=== PATIENT | female | born 1940 | race Caucasian/White ===

== ENCOUNTER 2018-07-30 16:01 | Emergency (ER) | payer MEDICARE, BC ==
--- NOTE | 2018-07-30 16:08 | UC ---
Respiratory Complaint HPI - HPI Summary HPI Summary: 77 yo female presents with fever, productive cough, and body aches for the last 2 days. Feels weak overall. Has taken ibuprofen for discomfort with mild relief. She does feel short of breath at times - worse with cough "fits". Denies sore throat, sinus symptoms, chest pain, abdominal pain, n/v. - History of Current Complaint Stated Complaint: CHEST CONGESTION Time Seen by Provider: 07/30/18 16:08 Hx Obtained From: Patient Onset/Duration: Gradual Onset Severity Initially: Mild Severity Currently: Mild Pain Intensity: 3 Pain Scale Used: 0-10 Numeric Character: Cough: Productive - Allergies/Home Medications Allergies/Adverse Reactions: Allergies Allergy/AdvReac Type Severity Reaction Status Date / Time Sulfa (Sulfonamide Allergy Intermediate Hives Verified 07/30/18 16:03 Antibiotics) PMH/Surg Hx/FS Hx/Imm Hx Endocrine History: Diabetes, Dyslipidemia Cardiovascular History: Hypertension, Pacemaker/ICD, Congestive Heart Failure GI/ History: Gastroesophageal Reflux - Surgical History Surgical History: Yes Surgery Procedure, Year, and Place: hysterectomy. oophrectomy. appendectomy. polypectomy. lung biopsy surgery scheduled for 04/12/16 - Family History Known Family History: Positive: Hypertension - Social History Lives: With Family Alcohol Use: None Substance Use Type: None Smoking Status (MU): Former Smoker Type: Cigarettes Amount Used/How Often: 10 years 2PPD Have You Smoked in the Last Year: No When Did the Patient Quit Smoking/Using Tobacco: 50 years Review of Systems All Other Systems Reviewed And Are Negative: Yes Constitutional: Positive: Fever, Fatigue, Other - Body aches Skin: Positive: Negative Eyes: Positive: Negative ENT: Positive: Negative Respiratory: Positive: Cough Cardiovascular: Positive: Negative Gastrointestinal: Positive: Negative Neurovascular: Positive: Negative Neurological: Positive: Negative Psychological: Positive: Negative Physical Exam - Summary Physical Exam Summary: GENERAL: NAD. WDWN. No pain distress. SKIN: No rashes, sores, lesions, or open wounds. HEENT: Head: AT/NC Eyes: Conjunctiva clear without inflammation or discharge. Ears: Hearing grossly normal. TMs intact, no bulging, erythema, or edema. Nose: Nasal mucosa pink and moist. NTTP maxillary and frontal sinus. Throat: Posterior oropharynx without exudates, erythema, or tonsillar enlargement. Uvula midline. NECK: Supple. Nontender. No lymphadenopathy. CHEST: Rales left lung with wheezing throughout right and left lung. No accessory muscle use. Breathing comfortably and in no distress. CV: Pulses intact. Cap refill <2seconds NEURO: Alert. PSYCH: Age appropriate behavior. Triage Information Reviewed: Yes Vital Signs: Vital Signs: Temp Pulse Resp BP Pulse Ox 99.4 F 80 20 132/68 97 07/30/18 16:06 07/30/18 16:06 07/30/18 16:06 07/30/18 16:06 07/30/18 16:06 Laboratory Tests 07/30/18 16:20 Influenza A (Rapid) Positive A Vital Signs Reviewed: Yes Respiratory Course/Dx - Course Course Of Treatment: POC glucose 203 compared to 138 this am per pt. IMPRESSION : Pacemaker leads in place. Lung schwab appear hyperinflated. No changes noted. since April 17, 2016. Duoneb: pt states that she feels "great" s/p duoneb. Lung sounds markedly improved with mild wheezing at bases only. Discussed with pt my concerns given her comorbidities and PMHx. She does not want to go to the hospital and adamantly does want to be admitted - therefore will treat her with tamiflu and cover for PNA with augmentin. I have scheduled her a f/u at her PCP' s office in 2 days for a recheck. Discussed with pt and pt's daughter that if her symptoms worsen she is to go to the ED. - Differential Dx/Diagnosis Provider Diagnosis: Influenza, DM2 (diabetes mellitus, type 2), CHF (congestive heart failure) Discharge - Sign-Out/Discharge Documenting (check all that apply): Patient Departure All imaging exams completed and their final reports reviewed: Yes - Discharge Plan Condition: Stable Disposition: HOME Prescriptions: Amoxicillin/Clavulanate TAB* [Augmentin TAB 875*] 875 mg PO BID #14 tab Oseltamivir CAP* [Tamiflu CAP*] 75 mg PO BID #10 cap Patient Education Materials: Influenza (DC) Referrals: William Gillis MD [Primary Care Provider] - 2 Days (Shahla Blanco 0900) Additional Instructions: If you develop a fever, shortness of breath, chest pain, new or worsening symptoms - please call your PCP or go to the ED. I have scheduled you an appointment with Shahla Blanco PA-C in Dr. Gillis's office for 08/01/18 at 9:00am for a recheck of your symptoms. Please rest and drink plenty of fluids. Follow up as above. - Billing Disposition and Condition Condition: STABLE Disposition: Home
[2018-07-30 16:11] VITALS: BP 132/68
[2018-07-30] MEDS ORDERED: Albuterol/Ipratropium NEB.SOL* Albuterol 2.5 MG/Ipratropium 0.5 MG 3 ML INH ONE (16:17)
== END 2018-07-30 17:10 | disposition home or self-care (01) ==
LOC: UCEAST 16:01
DX: E11.8 Type 2 diabetes mellitus with unspecified complications (principal); I50.9 Heart failure, unspecified; Z95.810 Presence of automatic (implantable) cardiac defibrillator; Z88.2 Allergy status to sulfonamides; Z87.891 Personal history of nicotine dependence
CPT/HCPCS: 71046; 99212; A9270-GY; G0463

== ENCOUNTER 2018-09-27 10:03 | Emergency (ER) | payer MEDICARE, BC ==
[2018-09-27 10:19] VITALS: BP 171/73
--- NOTE | 2018-09-27 10:32 | ED ---
Respiratory - HPI Summary HPI Summary: 77-year-old female presents with cough for the past 6 weeks. States she was diagnosed with the flu 6 weeks ago. States she finished her tamiflu and the cough has persisted. She has a history of asthma but she has not been taking her inhaler. She denies any recent weight change. No pain or swelling in her calf muscles. States that the cough is a productive cough mostly at night when she coughs up white phlegm. she has been following her primary. She denies any chest pain or shortness breath. No sore throat. No fevers. Has history of lung cancer that is in remission his primary problem has been removed she is also diabetic. she denies any hx of CHF. she is currently taking cough medication. she is no xarelto as has a pacemaker. - History of Current Complaint Chief Complaint: UCRespiratory Stated Complaint: COUGH Time Seen by Provider: 09/27/18 10:26 Pain Intensity: 0 - Allergy/Home Medications Allergies/Adverse Reactions: Allergies Allergy/AdvReac Type Severity Reaction Status Date / Time Sulfa (Sulfonamide Allergy Intermediate Hives Verified 09/27/18 10:19 Antibiotics) Home Medications: Home Medications Dronedarone TAB* [Multaq TAB*] 400 mg PO DAILY 09/27/18 [History Confirmed 09/27] PMH/Surg Hx/FS Hx/Imm Hx Endocrine/Hematology History: Reports: Hx Diabetes - type 2 Denies: Hx Thyroid Disease Cardiovascular History: Reports: Hx Hypertension - on meds, Hx Pacemaker/ICD - 2018, Other Cardiovascular Problems/Disorders - LUNG CANCER- LEFT BOTTOM LOBE REMOVED Denies: Hx Congestive Heart Failure Respiratory History: Reports: Hx Asthma - no meds Denies: Hx Chronic Obstructive Pulmonary Disease (COPD) GI History: Denies: Hx Ulcer History: Denies: Hx Renal Disease - Cancer History Cancer Type, Location and Year: Cervical Cancer 34 years old. [place] lung lower lobe removed 2017?? - Surgical History Surgery Procedure, Year, and Place: hysterectomy. oophrectomy. appendectomy. polypectomy. lung biopsy surgery scheduled for 04/12/16 Infectious Disease History: No Infectious Disease History: Denies: Hx Hepatitis, Hx Human Immunodeficiency Virus (HIV), History Other Infectious Disease, Traveled Outside the [place] in Last 30 Days - Family History Known Family History: Positive: Hypertension - Social History Alcohol Use: None Hx Substance Use: No Substance Use Type: Reports: None Hx Tobacco Use: No Smoking Status (MU): Former Smoker Type: Cigarettes Amount Used/How Often: 10 years 2PPD Have You Smoked in the Last Year: No Review of Systems Negative: Fever Negative: Chest Pain Positive: Cough. Negative: Shortness Of Breath Negative: Abdominal Pain All Other Systems Reviewed And Are Negative: Yes Physical Exam Triage Information Reviewed: Yes Vital Signs On Initial Exam: Initial Vitals Temp Pulse Resp BP Pulse Ox 98 F 79 17 171/73 100 09/27/18 10:16 09/27/18 10:16 09/27/18 10:16 09/27/18 10:16 09/27/18 10:16 Vital Signs Reviewed: Yes Appearance: Positive: Well-Appearing Skin: Positive: Warm, Dry Head/Face: Positive: Normal Head/Face Inspection Eyes: Positive: Normal, EOMI, [place], Conjunctiva Clear ENT: Positive: Normal ENT inspection, Pharynx normal, TMs normal Respiratory/Lung Sounds: Positive: Clear to Auscultation, Breath Sounds Present Cardiovascular: Positive: Normal, RRR Abdomen Description: Positive: Nontender, Soft Bowel Sounds: Positive: Present Musculoskeletal: Positive: Normal Neurological: Positive: Normal Psychiatric: Positive: Normal Diagnostics - Vital Signs Vital Signs Temp Pulse Resp BP Pulse Ox 09/27/18 10:16 98 F 79 17 171/73 100 - Laboratory Lab Statement: Any lab studies that have been ordered have been reviewed, and results considered in the medical decision making process. - Radiology chest Radiology Interpretation Completed By: Radiologist Summary of Radiographic Findings: IMPRESSION: Pacemaker leads in place. No active cardiopulmonary disease is identified. Disposition - Course Course Of Treatment: 77-year-old female presents with cough for the past 6 weeks. States she was diagnosed with the flu 6 weeks ago. States she finished her tamiflu and the cough has persisted. She has a history of asthma but she has not been taking her inhaler. She denies any recent weight change. No pain or swelling in her calf muscles. States that the cough is a productive cough mostly at night when she coughs up white phlegm. she has been following her primary. She denies any chest pain or shortness breath. No sore throat. No fevers. Has history of lung cancer that is in remission his primary problem has been removed she is also diabetic. she denies any hx of CHF. she is currently taking cough medication. on exam lungs CTA. no swelling noted to legs. chest xray normal. encourage to take inhaler. will add on augmentin with hx of asthma likely has a copd component to it. will give tessalon for cough and told to stop otc cough medications as blood pressure is elevated at this visit. told follow up with primary within 5 days about cough and blood pressure. patient understand and agrees with plan. - Differential Dx - Cardiopulmonary Differential Diagnoses - Cardiopulmonary: Bronchitis, CHF, Lower Resp Infection - Diagnoses Provider Diagnoses: Bronchitis, Hypertension Discharge - Sign-Out/Discharge Documenting (check all that apply): Patient Departure All imaging exams completed and their final reports reviewed: Yes - Discharge Plan Condition: Good Disposition: HOME Prescriptions: Amoxicillin/Clavulanate TAB* [Augmentin TAB 500 mg*] 500 mg PO BID #14 tab Benzonatate CAP* [Tessalon 100 MG CAP*] 100 mg PO TID #21 cap Levalbuterol HFA INHALER* [Xopenex Hfa Inhaler*] 1 puff INH Q6H PRN #1 mdi PRN Reason: Cough Patient Education Materials: Acute Bronchitis (ED) Referrals: William Gillis MD [Primary Care Provider] - Additional Instructions: Follow up with primary within 5 days take tessalon three times a day for cough use inhaler every 6 hours as needed for cough Take augmentin twice a day for 7 days Return to ED if develop any new or worsening symptoms - Billing Disposition and Condition Condition: GOOD Disposition: Home
== END 2018-09-27 11:15 | disposition home or self-care (01) ==
LOC: UCEAST 10:03
DX: J40 Bronchitis, not specified as acute or chronic (principal); I10 Essential (primary) hypertension; Z87.891 Personal history of nicotine dependence; Z88.2 Allergy status to sulfonamides
CPT/HCPCS: 71046; 99212; G0463

== ENCOUNTER 2018-11-01 11:10 | Emergency (ER) | payer MEDICARE, BC ==
[2018-11-01 11:59] VITALS: BP 136/63
--- NOTE | 2018-11-01 12:29 | ED ---
Bite Injury/Animal - HPI Summary HPI Summary: 77 year old female presents with potential tick behind right ear. She states that her daughter removed most of the tick yesterday and it was engorged. It was removed yesterday. Unsure how long the tick was there. She has no medical conditions. - History of Current Complaint Chief Complaint: Martha Stated Complaint: TICK BITE Time Seen by Provider: 11/01/18 12:16 Pain Intensity: 0 - Allergies/Home Medications Allergies/Adverse Reactions: Allergies Allergy/AdvReac Type Severity Reaction Status Date / Time Sulfa (Sulfonamide Allergy Intermediate Hives Verified 11/01/18 11:59 Antibiotics) PMH/Surg Hx/FS Hx/Imm Hx Endocrine/Hematology History: Reports: Hx Diabetes - type 2 Denies: Hx Thyroid Disease Cardiovascular History: Reports: Hx Hypertension - on meds, Hx Pacemaker/ICD - 2017, Other Cardiovascular Problems/Disorders - LUNG CANCER- LEFT BOTTOM LOBE REMOVED Denies: Hx Congestive Heart Failure Respiratory History: Reports: Hx Asthma - no meds Denies: Hx Chronic Obstructive Pulmonary Disease (COPD) GI History: Denies: Hx Ulcer History: Denies: Hx Renal Disease - Cancer History Cancer Type, Location and Year: Cervical Cancer 34 years old. [place] lung lower lobe removed 2017?? - Surgical History Surgery Procedure, Year, and Place: hysterectomy. oophrectomy. appendectomy. polypectomy. lung biopsy surgery scheduled for 04/12/16 Infectious Disease History: No Infectious Disease History: Denies: Hx Hepatitis, Hx Human Immunodeficiency Virus (HIV), History Other Infectious Disease, Traveled Outside the [place] in Last 30 Days - Family History Known Family History: Positive: Hypertension - Social History Alcohol Use: None Hx Substance Use: No Substance Use Type: Reports: None Hx Tobacco Use: No Smoking Status (MU): Former Smoker Type: Cigarettes Amount Used/How Often: 10 years 2PPD Have You Smoked in the Last Year: No Review of Systems Negative: Fever Negative: Chest Pain Negative: Shortness Of Breath Positive: Rash All Other Systems Reviewed And Are Negative: Yes Physical Exam Triage Information Reviewed: Yes Vital Signs On Initial Exam: Initial Vitals Temp Pulse Resp BP Pulse Ox 98 F 94 17 136/63 99 11/01/18 11:57 11/01/18 11:57 11/01/18 11:57 11/01/18 11:57 11/01/18 11:57 Vital Signs Reviewed: Yes Appearance: Positive: Well-Appearing Skin: Positive: Warm, Dry, Other - scabbed area behind right ear Head/Face: Positive: Normal Head/Face Inspection Eyes: Positive: Normal, Conjunctiva Clear ENT: Positive: Pharynx normal Respiratory/Lung Sounds: Positive: Clear to Auscultation, Breath Sounds Present Cardiovascular: Positive: Normal, RRR Musculoskeletal: Positive: Normal Neurological: Positive: Normal Psychiatric: Positive: Normal Diagnostics - Vital Signs Vital Signs Temp Pulse Resp BP Pulse Ox 11/01/18 11:57 98 F 94 17 136/63 99 - Laboratory Lab Statement: Any lab studies that have been ordered have been reviewed, and results considered in the medical decision making process. Bite Injury Course/Dx - Course Course Of Treatment: 77 year old female presents with potential tick behind right ear. She states that her daughter removed most of the tick yesterday and it was engorged. It was removed yesterday. Unsure how long the tick was there. She has no medical conditions. On exam right ear has scab behind it. patient wanted it removed so removed with scalpel. appears most consistent with a tick. We will treat with a prophylactic dose doxycycline. Told to keep the area clean and wash with soap and water. will have follow up with primary as blood pressure is in pre-htn range. Patient understands agrees with plan. - Diagnoses Differential Diagnosis/HQI/PQRI: Positive: Cellulitis - tick, lyme, Other Provider Diagnosis: Tick bite Discharge - Sign-Out/Discharge Documenting (check all that apply): Patient Departure All imaging exams completed and their final reports reviewed: No Studies - Discharge Plan Condition: Good Disposition: HOME Prescriptions: DOXYcycline CAP(*) [DOXYcycline 100MG CAP(*)] 200 mg PO DAILY #2 cap Patient Education Materials: Tick Bite (ED) Referrals: William Gillis MD [Primary Care Provider] - Additional Instructions: take doxycycline both tablets at once Return to if develop rash or fever or any new or worsening symptoms - Billing Disposition and Condition Condition: GOOD Disposition: Home
== END 2018-11-01 12:33 | disposition home or self-care (01) ==
LOC: UCEAST 11:10
DX: S00.461A Insect bite (nonvenomous) of right ear, initial encounter (principal); W57.XXXA Bitten or stung by nonvenomous insect and other nonvenomous arthropods, initial encounter; Y92.9 Unspecified place or not applicable; E11.9 Type 2 diabetes mellitus without complications; I10 Essential (primary) hypertension; Z95.810 Presence of automatic (implantable) cardiac defibrillator; J45.909 Unspecified asthma, uncomplicated; Z88.2 Allergy status to sulfonamides; Z87.891 Personal history of nicotine dependence
CPT/HCPCS: 99212; G0463

== ENCOUNTER 2020-11-09 16:44 | Inpatient (IN) ==
[2020-11-09] MEDS ORDERED: NS 0.9% 1000 ml BAG 1,000 ML IV ONE ×2 (16:48→17:39)
[2020-11-09] MEDS ORDERED: Piperacillin/Tazobac ADVAN 3.375 GM in NS 0.9% 100 ml BAG 100 ML IVPB ONE (17:25)
[2020-11-09 17:46] LABS: Hematocrit 43 % (35-47); Hemoglobin 14.2 g/dL (12.0-16.0); Mean Corpuscular HGB Conc 33 g/dL (31-36); Mean Corpuscular Hemoglobin 27 pg (27-31); Mean Corpuscular Volume 83 fL (80-97); Mean Platelet Volume 7.8 fL (7.4-10.4); Platelet Count 187 10^3/uL (150-450); Red Blood Count 5.21 10^6 /uL (3.70-4.87); Red Cell Distribution Width 15 % (10-15); White Blood Count 13.2 10^3/uL (3.5-10.8)
[2020-11-09 17:49] LABS: Urine Appearance Cloudy; Urine Bilirubin Negative (Negative); Urine Blood 1+ (Negative); Urine Color Yellow; Urine Glucose 3+(>=500 mg/dL) (Negative); Urine Ketones 2+ (Negative); Urine Nitrite Negative (Negative); Urine Protein 2+(100 mg/dL) (Negative); Urine Specific Gravity 1.024 (1.002-1.030); Urine Urobilinogen Negative (Negative)
[2020-11-09 17:52] LABS: Urine Bacteria Absent (Absent); Urine Red Blood Cell 1+(3-5/hpf) (Absent); Urine Squamous Epithelial Cell Present (Absent); Urine White Blood Cell Trace(0-5/hpf) (Absent)
[2020-11-09 17:52] LABS: INR 1.26 (0.82-1.09)
[2020-11-09 18:09] LABS: Troponin I 0.12 ng/mL (<0.03)
[2020-11-09 18:19] LABS: ALT 16 U/L (7-52); AST 24 U/L (13-39); Albumin 3.8 g/dL (3.2-5.2); Alkaline Phosphatase 91 U/L (34-104); Anion Gap 21 mmol/L (2-11); Blood Urea Nitrogen 34 mg/dL (6-24); CO2 Carbon Dioxide 19 mmol/L (22-32); Calcium 9.4 mg/dL (8.6-10.3); Chloride 98 mmol/L (101-111); EGFR African American 28.9 (>60); EGFR Non-African American 23.9 (>60); Globulin 3.9 g/dL (2-4); Glucose 241 mg/dL (70-100); Lipase < 10 U/L (11.0-82.0); Magnesium 2.2 mg/dL (1.9-2.7); Sodium 138 mmol/L (135-145); Total Protein 7.7 g/dL (6.4-8.9)
[2020-11-09 18:22] LABS: Salicylate < 2.50 mg/dL (<30)
[2020-11-09 18:54] LABS: ABS Lymphocytes 0.3 10^3/ul (1.0-4.8); ABS Monocytes 0.4 10^3/ul (0-0.8); ABS Neutrophils 12.4 10^3/ul (1.5-7.7); Lymphocyte % 2.1 %; Nucleated Red Blood Cells % 0.2
[2020-11-09] MEDS ORDERED: Vancomycin 1,000 MG in NS 0.9% 250 ml 250 ML IVPB ONE (18:58)
[2020-11-09] MEDS ORDERED: Vancomycin 1,000 MG BAG/ADDV ONE (19:38)
[2020-11-10] MEDS ORDERED: diPHENhydraMINE IV 50 MG/ML 1 ml VIAL (BENADRYL) IV ONE
[2020-11-10] MEDS ORDERED: methylPREDNISolone SOD 40 mg/ml 1 ml VIAL IV ONE (00:01)
[2020-11-10] MEDS ORDERED: Lactated Ringers 1000 ml BAG 1,000 ML IV ONE ×4 (00:54→04:50)
[2020-11-10] MEDS ORDERED: Vancomycin per Pharmacy 1 EA NOTE FOLLOW UP SCH (01:00)
[2020-11-10] MEDS ORDERED: Zosyn per Pharmacy NOTE FOLLOW UP SCH (01:00)
[2020-11-10] MEDS ORDERED: ZOSYN 3.375 GM x ONE DOSE over 30 miuntes IV SCH (01:30)
[2020-11-10] MEDS ORDERED: ZOSYN 3.375 GM x ONE DOSE over 30 miuntes IV (01:30)
[2020-11-10 03:35] LABS: Troponin I 0.18 ng/mL (<0.03)
[2020-11-10] MEDS ORDERED: NS 0.9% 500 ml BAG 500 ML IV ONE (05:52)
[2020-11-10] MEDS ORDERED: Norepinephrine 16MCG/ML IVPRE 4,000 MCG/250 ML BAG IV SCH (07:00)
[2020-11-10 07:13] LABS: Troponin I 0.22 ng/mL (<0.03)
[2020-11-10 10:02] LABS: Hematocrit 40 % (35-47); Hemoglobin 12.5 g/dL (12.0-16.0); Mean Corpuscular HGB Conc 31 g/dL (31-36); Mean Corpuscular Hemoglobin 26 pg (27-31); Mean Corpuscular Volume 85 fL (80-97); Mean Platelet Volume 7.8 fL (7.4-10.4); Platelet Count 161 10^3/uL (150-450); Red Blood Count 4.72 10^6 /uL (3.70-4.87); Red Cell Distribution Width 15 % (10-15); White Blood Count 15.3 10^3/uL (3.5-10.8)
[2020-11-10 10:19] LABS: C Reactive Protein 445.96 mg/L (<8.01); EGFR African American 29.1 (>60); EGFR Non-African American 24.1 (>60); Potassium 4.3 mmol/L (3.5-5.0)
[2020-11-10 10:48] LABS: ABS Lymphocytes 0.3 10^3/ul (1.0-4.8); ABS Monocytes 0.6 10^3/ul (0-0.8); ABS Neutrophils 14.4 10^3/ul (1.5-7.7); Eosinophil % 0.2 %; Lymphocyte % 1.8 %; Nucleated Red Blood Cells % 0.1
[2020-11-10] MEDS: Norepinephrine 16MCG/ML IVPRE 4,000 MCG/250 ML BAG IV SCH (14:08)
[2020-11-10] MEDS ORDERED: Dextrose 50% Syringe 50 ml 25 GM/50 ML SYRINGE IV PUSH PRN (14:33)
[2020-11-10] MEDS ORDERED: Lactated Ringers 1000 ml BAG 1,000 ML IV SCH (15:00)
[2020-11-10] MEDS: Cefepime 1 GM in Dextrose 1 GM/50 ML BAG IV SCH (15:02)
[2020-11-10 15:23] LABS: Troponin I 0.17 ng/mL (<0.03)
[2020-11-10] MEDS: Vancomycin 750 MG in NS 0.9% 250 ML IVPB SCH (16:02)
[2020-11-11] MEDS: Cefepime 1 GM in Dextrose 1 GM/50 ML BAG IV SCH ×2 (02:45→15:21)
[2020-11-11 04:12] LABS: Hematocrit 39 % (35-47); Hemoglobin 12.6 g/dL (12.0-16.0); Mean Corpuscular HGB Conc 33 g/dL (31-36); Mean Corpuscular Hemoglobin 27 pg (27-31); Mean Corpuscular Volume 82 fL (80-97); Mean Platelet Volume 7.8 fL (7.4-10.4); Platelet Count 140 10^3/uL (150-450); Red Cell Distribution Width 15 % (10-15); White Blood Count 17.1 10^3/uL (3.5-10.8)
[2020-11-11 04:27] LABS: Calcium 7.9 mg/dL (8.6-10.3); EGFR African American 41.6 (>60); EGFR Non-African American 34.4 (>60); Potassium 4.1 mmol/L (3.5-5.0)
[2020-11-11] MEDS: Norepinephrine 16MCG/ML IVPRE 4,000 MCG/250 ML BAG IV SCH (04:32)
[2020-11-11 04:50] LABS: ABS Eosinophils 0.3 10^3/ul (0-0.6); ABS Lymphocytes 0.4 10^3/ul (1.0-4.8); ABS Monocytes 0.7 10^3/ul (0-0.8); ABS Neutrophils 15.6 10^3/ul (1.5-7.7); Eosinophil % 1.8 %; Lymphocyte % 2.4 %; Nucleated Red Blood Cells % 0.3
[2020-11-11] MEDS: Vancomycin 750 MG in NS 0.9% 250 ML IVPB SCH (15:49)
[2020-11-12] MEDS: Cefepime 1 GM in Dextrose 1 GM/50 ML BAG IV SCH ×2 (02:58→14:30)
[2020-11-12 03:16] LABS: Hematocrit 35 % (35-47); Hemoglobin 11.4 g/dL (12.0-16.0); Mean Corpuscular HGB Conc 33 g/dL (31-36); Mean Corpuscular Hemoglobin 27 pg (27-31); Mean Corpuscular Volume 81 fL (80-97); Red Blood Count 4.29 10^6 /uL (3.70-4.87); Red Cell Distribution Width 15 % (10-15); White Blood Count 13.6 10^3/uL (3.5-10.8)
[2020-11-12 03:19] LABS: ABS Eosinophils 0.1 10^3/ul (0-0.6); ABS Lymphocytes 0.7 10^3/ul (1.0-4.8); ABS Monocytes 0.6 10^3/ul (0-0.8); Lymphocyte % 5.3 %; Mean Platelet Volume 8.2 fL (7.4-10.4)
[2020-11-12 03:27] LABS: Calcium 8.3 mg/dL (8.6-10.3); Potassium 4.1 mmol/L (3.5-5.0)
[2020-11-12 03:33] LABS: EGFR African American 62.9 (>60)
[2020-11-12 03:54] LABS: Platelet Count 78 10^3/uL (150-450)
[2020-11-12] MEDS ORDERED: Vancomycin Trough Check NOTE FOLLOW UP ONE (15:00)
[2020-11-12] MEDS: Linezolid 600 MG IVPREMIX(*) 600 MG/300 ML BAG IVPB SCH (17:37)
[2020-11-13] MEDS ORDERED: Diltiazem IV push/loading dose 5 MG/ML 5 ML vial (25 mg) IV SLOW PU ONE ×4 (01:42→12:58)
[2020-11-13] MEDS: Linezolid 600 MG IVPREMIX(*) 600 MG/300 ML BAG IVPB SCH ×2 (05:16→16:55)
[2020-11-13] MEDS ORDERED: Diltiazem IV push/loading dose 5 MG/ML 5 ML vial (25 mg) ONE (12:21)
[2020-11-14] MEDS: Albuterol HFA INHALER 8 gm MDI INH PRN (01:32)
[2020-11-14] MEDS: cefTRIAXone 1 gm/50 mL NS BAG 1 GM/50 ML BAG IVPB SCH (05:38)
[2020-11-14 06:13] LABS: C Reactive Protein 92.83 mg/L (<8.01); Calcium 9.7 mg/dL (8.6-10.3); EGFR African American 83.3 (>60); EGFR Non-African American 68.8 (>60); Potassium 4.2 mmol/L (3.5-5.0)
[2020-11-14 08:31] LABS: Hematocrit 41 % (35-47); Hemoglobin 13.1 g/dL (12.0-16.0); Mean Corpuscular HGB Conc 32 g/dL (31-36); Mean Corpuscular Hemoglobin 26 pg (27-31); Mean Corpuscular Volume 82 fL (80-97); Platelet Count 91 10^3/uL (150-450); Red Cell Distribution Width 15 % (10-15); White Blood Count 11.2 10^3/uL (3.5-10.8)
[2020-11-14 09:59] LABS: ABS Basophils 0.1 10^3/ul (0-0.2); ABS Eosinophils 0.3 10^3/ul (0-0.6); ABS Lymphocytes 1.4 10^3/ul (1.0-4.8); ABS Monocytes 0.8 10^3/ul (0-0.8); ABS Neutrophils 8.7 10^3/ul (1.5-7.7); Eosinophil % 2.4 %; Lymphocyte % 12.3 %; Nucleated Red Blood Cells % 0.3
[2020-11-15] MEDS: cefTRIAXone 1 gm/50 mL NS BAG 1 GM/50 ML BAG IVPB SCH (05:59)
[2020-11-15 06:22] LABS: Hematocrit 41 % (35-47); Hemoglobin 13.9 g/dL (12.0-16.0); Mean Corpuscular HGB Conc 34 g/dL (31-36); Mean Corpuscular Hemoglobin 28 pg (27-31); Mean Corpuscular Volume 83 fL (80-97); Mean Platelet Volume 9.5 fL (7.4-10.4); Platelet Count 144 10^3/uL (150-450); Red Blood Count 5.01 10^6 /uL (3.70-4.87); Red Cell Distribution Width 15 % (10-15); White Blood Count 9.4 10^3/uL (3.5-10.8)
[2020-11-15 06:39] LABS: Calcium 9.3 mg/dL (8.6-10.3); EGFR African American 76.6 (>60); EGFR Non-African American 63.3 (>60); Potassium 4.4 mmol/L (3.5-5.0)
[2020-11-15 07:51] LABS: ABS Basophils 0.1 10^3/ul (0-0.2); ABS Eosinophils 0.3 10^3/ul (0-0.6); ABS Lymphocytes 2.8 10^3/ul (1.0-4.8); ABS Monocytes 0.8 10^3/ul (0-0.8); ABS Neutrophils 5.5 10^3/ul (1.5-7.7); Eosinophil % 2.8 %; Lymphocyte % 29.5 %; Nucleated Red Blood Cells % 0.2
[2020-11-15] MEDS: Albuterol HFA INHALER 8 gm MDI INH PRN (08:43)
[2020-11-15] MEDS ORDERED: Buffered Lidocaine 1% SYRIN 1 ml INTRADERM ONE (10:33)
[2020-11-16 05:28] LABS: Hematocrit 38 % (35-47); Hemoglobin 12.7 g/dL (12.0-16.0); Mean Corpuscular HGB Conc 33 g/dL (31-36); Mean Corpuscular Hemoglobin 27 pg (27-31); Mean Corpuscular Volume 81 fL (80-97); Mean Platelet Volume 8.7 fL (7.4-10.4); Platelet Count 173 10^3/uL (150-450); Red Blood Count 4.72 10^6 /uL (3.70-4.87); Red Cell Distribution Width 15 % (10-15); White Blood Count 10.9 10^3/uL (3.5-10.8)
[2020-11-16] MEDS: ceFAZolin 2 GM PREMIX 2 GM/50 ML BAG IVPB SCH ×3 (05:38→21:23)
[2020-11-16 05:41] LABS: C Reactive Protein 36.5 mg/L (<8.01); Calcium 8.8 mg/dL (8.6-10.3); EGFR African American 87.1 (>60); EGFR Non-African American 71.9 (>60); Potassium 3.9 mmol/L (3.5-5.0)
[2020-11-16 05:49] LABS: ABS Basophils 0.1 10^3/ul (0-0.2); ABS Eosinophils 0.3 10^3/ul (0-0.6); ABS Lymphocytes 2.6 10^3/ul (1.0-4.8); ABS Monocytes 0.8 10^3/ul (0-0.8); Eosinophil % 2.6 %; Lymphocyte % 24.2 %; Nucleated Red Blood Cells % 0.1
[2020-11-17] MEDS: ceFAZolin 2 GM PREMIX 2 GM/50 ML BAG IVPB SCH ×2 (05:19→14:00)
[2020-11-17 07:04] LABS: INR 1.43 (0.82-1.09)
[2020-11-17 07:07] LABS: Hematocrit 41 % (35-47); Hemoglobin 13.3 g/dL (12.0-16.0); Mean Corpuscular HGB Conc 33 g/dL (31-36); Mean Corpuscular Hemoglobin 27 pg (27-31); Mean Corpuscular Volume 81 fL (80-97); Mean Platelet Volume 8.5 fL (7.4-10.4); Platelet Count 235 10^3/uL (150-450); Red Blood Count 5.01 10^6 /uL (3.70-4.87); Red Cell Distribution Width 15 % (10-15); White Blood Count 11.5 10^3/uL (3.5-10.8)
[2020-11-17 07:11] LABS: ABS Basophils 0.1 10^3/ul (0-0.2); ABS Eosinophils 0.1 10^3/ul (0-0.6); ABS Monocytes 0.8 10^3/ul (0-0.8); ABS Neutrophils 7.5 10^3/ul (1.5-7.7); Eosinophil % 1.1 %; Lymphocyte % 26.1 %; Nucleated Red Blood Cells % 0.1
[2020-11-17 07:15] LABS: Calcium 8.6 mg/dL (8.6-10.3); Potassium 3.6 mmol/L (3.5-5.0)
[2020-11-17 07:21] LABS: EGFR African American 88.4 (>60)
[2020-11-17 15:34] VITALS: BP 133/55
== END 2020-11-17 19:35 | disposition home or self-care (01) | DRG 871 ==
LOC: ED 16:44 → MEDTELE 11-10 00:11 → ICU 11-10 07:10 → MEDTELE 11-12 23:12
PROVIDERS: ADMIT Pediatrics; ATTEND Internal Medicine

== ENCOUNTER 2022-02-20 17:29 | Observation (INO) ==
[2022-02-20 19:29] LABS: ABS Eosinophils 0.3 10^3/ul (0-0.6); ABS Lymphocytes 1.2 10^3/ul (1.0-4.8); ABS Monocytes 0.8 10^3/ul (0-0.8); ABS Neutrophils 6.9 10^3/ul (1.5-7.7); Hematocrit 40 % (35-47); Hemoglobin 13.1 g/dL (12.0-16.0); Lymphocyte % 13.5 %; Mean Corpuscular HGB Conc 33 g/dL (31-36); Mean Corpuscular Hemoglobin 26 pg (27-31); Mean Corpuscular Volume 80 fL (80-97); Mean Platelet Volume 8.2 fL (7.4-10.4); Platelet Count 179 10^3/uL (150-450); Red Blood Count 5.05 10^6 /uL (3.70-4.87); Red Cell Distribution Width 15 % (10-15); White Blood Count 9.3 10^3/uL (3.5-10.8)
[2022-02-20 20:11] LABS: Albumin/Globulin Ratio 0.9 (1-3); Calcium 9.3 mg/dL (8.6-10.3); Globulin 3.2 g/dL (2-4); Potassium 4.7 mmol/L (3.5-5.0); Total Bilirubin 0.6 mg/dL (0.2-1.0); Total Protein 6.2 g/dL (6.4-8.9); eGFR CKD-EPI 48.8 (>60)
[2022-02-20] MEDS ORDERED: Dextrose 50% Syringe 50 ml 25 GM/50 ML SYRINGE IV PUSH PRN (20:27)
[2022-02-20 21:38] LABS: High Sensitivity Troponin 1 Hr 25 pg/mL (<15)
[2022-02-21] MEDS ORDERED: Albuterol HFA INHALER 8 gm MDI INH PRN (02:42)
[2022-02-21] MEDS ORDERED: Dextrose 50% Syringe 50 ml 25 GM/50 ML SYRINGE IV PUSH PRN (02:47)
[2022-02-21] MEDS: Empagliflozin 25 MG TAB PO SCH (08:25)
[2022-02-21] MEDS: Potassium Chlor 10 meq TAB PO SCH (08:27)
[2022-02-21] MEDS ORDERED: Mometasone/Formoter 200/5 MDI INH PRN (17:10)
[2022-02-21 18:34] LABS: Glucose Confirmatory 429 mg/dL (70-100)
[2022-02-22] MEDS: Potassium Chlor 10 meq TAB PO SCH (09:11)
[2022-02-22] MEDS: Empagliflozin 25 MG TAB PO SCH (09:11)
[2022-02-22 12:54] LABS: ABS Eosinophils 0.3 10^3/ul (0-0.6); ABS Lymphocytes 1.3 10^3/ul (1.0-4.8); ABS Monocytes 1.1 10^3/ul (0-0.8); ABS Neutrophils 7.9 10^3/ul (1.5-7.7); Eosinophil % 2.7 %; Hematocrit 39 % (35-47); Hemoglobin 12.7 g/dL (12.0-16.0); Lymphocyte % 12.3 %; Mean Corpuscular HGB Conc 32 g/dL (31-36); Mean Corpuscular Hemoglobin 26 pg (27-31); Mean Corpuscular Volume 80 fL (80-97); Mean Platelet Volume 8.5 fL (7.4-10.4); Platelet Count 156 10^3/uL (150-450); Red Blood Count 4.93 10^6 /uL (3.70-4.87); Red Cell Distribution Width 15 % (10-15); White Blood Count 10.7 10^3/uL (3.5-10.8)
[2022-02-22 13:48] LABS: Calcium 9.1 mg/dL (8.6-10.3); Potassium 4.5 mmol/L (3.5-5.0); eGFR CKD-EPI 58.7 (>60)
[2022-02-23 08:56] LABS: Calcium 9.3 mg/dL (8.6-10.3); Potassium 4.7 mmol/L (3.5-5.0); eGFR CKD-EPI 63.4 (>60)
[2022-02-23] MEDS: Potassium Chlor 10 meq TAB PO SCH (10:09)
[2022-02-23] MEDS: Empagliflozin 25 MG TAB PO SCH (10:10)
[2022-02-24] MEDS: Potassium Chlor 10 meq TAB PO SCH (08:21)
[2022-02-24] MEDS: Empagliflozin 25 MG TAB PO SCH (08:22)
[2022-02-24 10:49] VITALS: BP 104/47
== END 2022-02-24 13:30 | disposition swing bed (61) ==
LOC: EDHOLD 17:29 → ED 17:29 → EDHOLD 23:17 → SUATTDRO 02-21 02:30 → MED 02-21 16:34
PROVIDERS: ADMIT Internal Medicine; ATTEND Internal Medicine

== ENCOUNTER 2022-02-24 13:37 | Inpatient (IN) ==
[2022-02-24] MEDS ORDERED: Dextrose 50% Syringe 50 ml 25 GM/50 ML SYRINGE IV PUSH PRN (16:33)
[2022-02-24] MEDS ORDERED: Albuterol HFA INHALER 8 gm MDI INH PRN (16:33)
[2022-02-24] MEDS ORDERED: Mometasone/Formoter 200/5 MDI INH PRN (16:33)
[2022-02-25] MEDS: Potassium Chlor 10 meq TAB PO SCH (08:22)
[2022-02-25] MEDS: Empagliflozin 25 MG TAB PO SCH (08:25)
[2022-02-26] MEDS: Empagliflozin 25 MG TAB PO SCH (09:22)
[2022-02-26] MEDS: Potassium Chlor 10 meq TAB PO SCH (09:22)
[2022-02-27 09:43] VITALS: BP 133/66
[2022-02-27] MEDS: Empagliflozin 25 MG TAB PO SCH (09:46)
[2022-02-27] MEDS: Potassium Chlor 10 meq TAB PO SCH (09:46)
[2022-02-27 11:19] LABS: Rapid COVID-19 Molecular Undetected (Undetected)
== END 2022-02-27 12:10 | DRG 639 ==
LOC: SUATTDRO 13:37 → MED 13:37
PROVIDERS: ADMIT Internal Medicine; ATTEND Pediatrics

== ENCOUNTER 2022-03-12 12:58 | Inpatient (IN) ==
[2022-03-12] MEDS ORDERED: cefTRIAXone 1 gm/50 mL D5W 1 GM/50 ML BAG IV ONE (13:05)
[2022-03-12 13:18] LABS: ABS Basophils 0.1 10^3/ul (0-0.2); ABS Lymphocytes 2.2 10^3/ul (1.0-4.8); ABS Monocytes 0.6 10^3/ul (0-0.8); ABS Neutrophils 17.6 10^3/ul (1.5-7.7); Eosinophil % 0.2 %; Hematocrit 46 % (35-47); Hemoglobin 14.6 g/dL (12.0-16.0); Lymphocyte % 10.5 %; Mean Corpuscular HGB Conc 32 g/dL (31-36); Mean Corpuscular Hemoglobin 25 pg (27-31); Mean Corpuscular Volume 78 fL (80-97); Mean Platelet Volume 8.3 fL (7.4-10.4); Nucleated Red Blood Cells % 0.1; Platelet Count 113 10^3/uL (150-450); Red Blood Count 5.93 10^6 /uL (3.70-4.87); Red Cell Distribution Width 16 % (10-15); White Blood Count 20.5 10^3/uL (3.5-10.8)
[2022-03-12 13:40] LABS: High Sens Troponin Baseline 160 pg/mL (<15)
[2022-03-12 14:04] LABS: ALT 46 U/L (7-52); Albumin 3.1 g/dL (3.2-5.2); Alkaline Phosphatase 446 U/L (35-149); Blood Urea Nitrogen 33 mg/dL (6-24); CO2 Carbon Dioxide 23 mmol/L (22-32); Calcium 9.2 mg/dL (8.6-10.3); Chloride 101 mmol/L (101-111); Globulin 3.1 g/dL (2-4); Glucose 159 mg/dL (70-100); Sodium 131 mmol/L (135-145); Total Protein 6.2 g/dL (6.4-8.9); eGFR CKD-EPI 59.4 (>60)
[2022-03-12 14:20] LABS: Urine Appearance Clear; Urine Color Yellow
[2022-03-12 14:24] LABS: Urine Bilirubin Negative (Negative); Urine Blood Negative (Negative); Urine Glucose 3+ (>=1000 mg/dL) (Negative); Urine Ketones Negative (Negative); Urine Nitrite Negative (Negative); Urine Protein Trace (Negative); Urine Specific Gravity 1.015 (1.005-1.030); Urine Urobilinogen 1.0 (Negative) (Negative); Urine pH 6.5 (5.0-9.0)
[2022-03-12 14:33] LABS: Urine Bacteria Absent (Absent); Urine Red Blood Cell Trace(0-2/hpf) (Absent); Urine White Blood Cell Trace(0-5/hpf) (Absent)
[2022-03-12 14:38] LABS: High Sensitivity Troponin 1 Hr 116 pg/mL (<15)
[2022-03-12 14:49] LABS: AST 51 U/L (13-39); Anion Gap 7 mmol/L (2-11); Potassium 4.4 mmol/L (3.5-5.0)
[2022-03-12] MEDS ORDERED: Albuterol HFA INHALER 8 gm MDI INH PRN (16:08)
[2022-03-12 16:21] LABS: Total Iron Binding Capacity 281 mcg/dL (250-450); Transferrin 201 mg/dL (203-362)
[2022-03-12 16:43] LABS: Ferritin 681.5 ng/mL (11-307)
[2022-03-12 16:46] LABS: Folate 17.67 ng/mL (5.90-24.80)
[2022-03-12 16:47] LABS: Vitamin B12 > 1450 pg/mL (180-914)
[2022-03-12] MEDS ORDERED: Dextrose 50% Syringe 50 ml 25 GM/50 ML SYRINGE IV PUSH PRN (16:52)
[2022-03-12] MEDS: Mometasone/Formoter 200/5 MDI INH SCH (19:43)
[2022-03-12] MEDS ORDERED: Lactated Ringers 1000 ml BAG 1,000 ML IV SCH (20:00)
[2022-03-12 20:34] LABS: HDL Cholesterol 36.1 mg/dL
[2022-03-12] MEDS: Enoxaparin 60 MG/0.6 ML SYR SUBCUT SCH (22:07)
[2022-03-13 07:04] LABS: Hematocrit 44 % (35-47); Mean Corpuscular HGB Conc 32 g/dL (31-36); Mean Corpuscular Hemoglobin 25 pg (27-31); Mean Corpuscular Volume 79 fL (80-97); Mean Platelet Volume 8.8 fL (7.4-10.4); Platelet Count 99 10^3/uL (150-450); Red Blood Count 5.53 10^6 /uL (3.70-4.87); Red Cell Distribution Width 16 % (10-15); White Blood Count 16.7 10^3/uL (3.5-10.8)
[2022-03-13] MEDS: Mometasone/Formoter 200/5 MDI INH SCH (07:07)
[2022-03-13 07:21] LABS: Magnesium 1.7 mg/dL (1.9-2.7); eGFR CKD-EPI 52.7 (>60)
[2022-03-13] MEDS: Enoxaparin 60 MG/0.6 ML SYR SUBCUT SCH (07:30)
[2022-03-13 07:41] LABS: Potassium 6.2 mmol/L (3.5-5.0)
[2022-03-13] MEDS ORDERED: NS 0.9% 1000 ml BAG 1,000 ML IV SCH ×2 (08:30→10:43)
[2022-03-13] MEDS ORDERED: Empagliflozin 25 MG TAB PO SCH (09:00)
[2022-03-13] MEDS ORDERED: Dextrose 50% Syringe 50 ml 25 GM/50 ML SYRINGE IV PUSH ONE (10:42)
[2022-03-13] MEDS ORDERED: Metoprolol Tartrate 5 mg VIAL 5 ml VIAL (1 mg/ml) IV PRN (10:54)
[2022-03-13] MEDS ORDERED: Morphine ORAL CONCENTRATE 5 MG/0.25 ML ORAL.SYRIN SL PRN (11:48)
[2022-03-13] MEDS ORDERED: Lorazepam PYXIS KEY PRN (11:49)
[2022-03-13] MEDS ORDERED: LORazepam 2 mg VIAL 1 ml IV PUSH PRN (11:49)
[2022-03-13 12:37] VITALS: BP 137/65
[2022-03-13] MEDS: Morphine 2 MG/ML SYRINGE IV PRN (12:43)
[2022-03-14] MEDS: Morphine 2 MG/ML SYRINGE IV PRN ×4 (00:45→22:09)
[2022-03-14] MEDS: Atropine 1% (ORAL/SL) 15 ML BTL SL PRN (17:06)
[2022-03-15] MEDS: Morphine 2 MG/ML SYRINGE IV PRN ×2 (02:29→06:30)
[2022-03-15] MEDS: Atropine 1% (ORAL/SL) 15 ML BTL SL PRN ×2 (03:50→08:08)
== END 2022-03-15 09:25 | disposition expired | DRG 871 ==
LOC: ED 12:58 → EDHOLD 15:52 → MEDTELE 18:21
PROVIDERS: ADMIT Internal Medicine; ATTEND Internal Medicine